=== PATIENT | female | born 1965 | race Caucasian/White ===

== ENCOUNTER → 2018-08-08 13:24 | Outpatient (CLI) | payer MEDICARE, MEDICAID ==
[2018-08-12 05:15] LABS: ENDOMYSIAL ANTIBODY IGA Negative (Negative)
[2018-08-12 12:19] LABS: ANTIGLIADIN IGA 7 units (0-19); ANTIGLIADIN IGG 5 units (0-19)
== END | disposition home or self-care (01) ==
LOC: D.LABREF 13:24
PROVIDERS: Internal Medicine Gastroenterology
DX: D72.820 Lymphocytosis (symptomatic) (principal)

== ENCOUNTER → 2019-01-06 10:07 | Outpatient (CLI) | payer MEDICARE, MEDICAID ==
[2019-01-06 10:43] LABS: ALBUMIN 3.6 g/dL (3.4-5.0); BILIRUBIN - DIRECT 0.08 mg/dL (0.00-0.30); BILIRUBIN - INDIRECT 0.29 mg/dL (0.00-1.00); BILIRUBIN - TOTAL 0.37 mg/dL (0.2-1.3); PROTEIN - SERUM 7.6 g/dL (6.4-8.2)
== END | disposition home or self-care (01) ==
LOC: D.US 10:07
PROVIDERS: ATTEND Internal Medicine Gastroenterology
DX: K76.0 Fatty (change of) liver, not elsewhere classified (principal)

== ENCOUNTER → 2019-06-28 09:30 | Outpatient (CLI) | payer MEDICARE, MEDICAID ==
[2019-06-28 10:20] LABS: ALBUMIN 3.7 g/dL (3.4-5.0); BILIRUBIN - DIRECT 0.09 mg/dL (0.00-0.30); BILIRUBIN - INDIRECT 0.13 mg/dL (0.00-1.00); BILIRUBIN - TOTAL 0.22 mg/dL (0.2-1.3); PROTEIN - SERUM 7.3 g/dL (6.4-8.2)
== END | disposition home or self-care (01) ==
LOC: D.US 09:30
PROVIDERS: ATTEND Internal Medicine Gastroenterology
DX: K76.0 Fatty (change of) liver, not elsewhere classified (principal)

== ENCOUNTER → 2020-07-07 07:58 | Outpatient (CLI) | payer MEDICARE, MEDICAID ==
[2020-07-07 08:29] LABS: ALBUMIN 3.4 g/dL (3.4-5.0); BILIRUBIN - INDIRECT 0.13 mg/dL (0.00-1.00); BILIRUBIN - TOTAL 0.18 mg/dL (0.2-1.3); PROTEIN - SERUM 7.3 g/dL (6.4-8.2)
[2020-07-07 08:30] LABS: BILIRUBIN - DIRECT 0.05 mg/dL (0.00-0.30)
== END | disposition home or self-care (01) ==
LOC: D.LAB 07:58 → D.US 08:30
PROVIDERS: ATTEND Internal Medicine Gastroenterology
DX: K76.0 Fatty (change of) liver, not elsewhere classified (principal)

== ENCOUNTER → 2021-01-11 08:47 | Outpatient (CLI) | payer MEDICARE, MEDICAID ==
[2021-01-11 09:57] LABS: ALBUMIN 3.4 g/dL (3.4-5.0); BILIRUBIN - DIRECT 0.07 mg/dL (0.00-0.30); BILIRUBIN - INDIRECT 0.11 mg/dL (0.00-1.00); BILIRUBIN - TOTAL 0.18 mg/dL (0.2-1.3); PROTEIN - SERUM 7.2 g/dL (6.4-8.2)
== END | disposition home or self-care (01) ==
LOC: D.US 08:00
PROVIDERS: ATTEND Internal Medicine Gastroenterology
DX: K76.0 Fatty (change of) liver, not elsewhere classified (principal)